=== PATIENT | male | born 1945 | race Caucasian/White ===

== ENCOUNTER 2020-11-03 14:53 | Emergency (ER) | payer MEDICARE, OTHER ==
[2020-11-03] MEDS ORDERED: Morphine 4 MG/ML VIAL SLOW IVP PRN (22:16)
[2020-11-03] MEDS ORDERED: Morphine 2 MG/ML VIAL SLOW IVP PRN (22:17)
[2020-11-03] MEDS ORDERED: Ondansetron PF 4 MG/2 ML Vial IVP PRN (22:18)
[2020-11-03] MEDS ORDERED: Scopolamine 1.5 mg/72 hour Patch TOP PRN ×2 (22:18)
[2020-11-03] MEDS ORDERED: Bisacodyl 10 MG SUPP PR PRN (22:20)
[2020-11-03] MEDS ORDERED: chlorproMAZINE HCl 50 MG/2 ML AMP IM PRN ×2 (22:20→22:21)
[2020-11-03] MEDS ORDERED: Hyoscyamine Sulfate SL 0.125 mg Tablet SL PRN (22:22)
[2020-11-03] MEDS ORDERED: diphenhydrAMINE 50 MG/ML VIAL IVP PRN (22:22)
[2020-11-03] MEDS ORDERED: Acetaminophen 325 MG TAB PO PRN (22:26)
== END 2020-11-03 18:58 | disposition admitted as inpatient to this hospital (09) ==
LOC: CSHERS 14:53 → UNDOADMIN 21:56 → CSHTELE 21:56 → UNDODISIN 22:00
DX: Z51.5 Encounter for palliative care (principal); C34.90 Malignant neoplasm of unspecified part of unspecified bronchus or lung; G89.3 Neoplasm related pain (acute) (chronic); F17.210 Nicotine dependence, cigarettes, uncomplicated; R56.9 Unspecified convulsions
CPT/HCPCS: 99284